=== PATIENT | female | born 1965 | race Caucasian/White ===

== ENCOUNTER 2017-03-28 18:21 | Emergency (ER) | payer MEDICAID, OTHER ==
[~2017-03-28] VITALS: Ht 167.6 cm; Wt 97.7 kg
[~2017-03-28 18:21] MED LIST: BP Med PO; METO25TA35 PO; No meds per pt.
[2017-03-28] MEDS ORDERED: HYDROcodone/APAP 5/325 TABLET PO ONE (19:30)
[2017-03-28] MEDS ORDERED: OMNIPAQUE 350 MG/ML, 100ML BOTTLE ONE (22:36)
[2017-03-28] MEDS ORDERED: SODIUM CHLORIDE 0.9% 1,000ML IVBOLUS ONE (23:30)
[2017-03-29 00:46] VITALS: BP 189/141
== END 2017-03-29 00:49 | disposition home or self-care (01) ==
LOC: ED 20:01
DX: C64.1 Malignant neoplasm of right kidney, except renal pelvis (principal); C78.7 Secondary malignant neoplasm of liver and intrahepatic bile duct; I25.2 Old myocardial infarction; Z90.5 Acquired absence of kidney; Z87.891 Personal history of nicotine dependence
CPT/HCPCS: 70460; 71260; 74177; 96360; 99284; J7030; Q9967